=== PATIENT | male | born 1955 | race Caucasian/White ===

== ENCOUNTER 2021-04-30 10:11 | Outpatient (CLI) | payer MEDICARE, SELFPAY ==
--- NOTE | 2021-04-30 10:32 | XR_ITS ---
WS: [id number] XR chest 2V* [id number] REASON FOR EXAM: PULMONARY EMPHYSEMA/SHORTNESS OF BREATH ON EXERTION FINDINGS: The chest is unchanged compared to 10/10/2018. Mild tortuosity of the gastric aorta. Normal heart size. Calcified granulomatous disease in both hemithoraces. No acute pulmonary parenchymal or pleural abnormality. Mild flattening of the hemidiaphragms with mild expansion of the anterior clear space. Mild scoliosis of the thoracic spine convex right. Mild changes of degenerative spondylosis in the mi d and lower thoracic spine. XR/XR chest 2V* [id number] IMPRESSION: Mild findings of hyperexpansion. No acute abnormality.
== END 2021-04-30 10:12 | disposition home or self-care (01) ==
PROVIDERS: PCP Registered Nurse; Visit Provider Registered Nurse
DX: J43.9 Emphysema, unspecified (principal); R06.02 Shortness of breath
CPT/HCPCS: 71046

== ENCOUNTER 2023-11-18 08:09 | Outpatient (CLI) | payer MEDICARE, SELFPAY ==
--- NOTE | 2023-11-18 08:30 | USCV_ITS ---
Abimael Núñez Age: 68 Gender: M : 1955 Exam Date: 11/18/2023 08:27 Ordering Phys: Octavio Barrett MD Technologist: [place] [facility] [place]cp BP: 128 / 72 HR: 88 Rhythm: Sinus Technical Quality: Adequate MEASUREMENTS (Male / Female) Normal Values 2D ECHO LVOT Diameter 2.0 cm LV Ejection Fraction MOD 4C 40.8 % LV Ejection Fraction MOD 2C 52.7 % LV Ejection Fraction 2C AL 53.1 % LA Diameter 4.1 cm RA Systolic Volume 4C AL 20.1 ml RA Systolic Volume 4C MOD 19.7 ml LA Sys Volume AL 44.8 cm cubed LA Sys Volume Index AL 25.0 cm cubed/m squared Aorta at Sinotubular Diameter 2.3 cm IVC Diameter 1.6 cm M-MODE LA Ao Ratio MM 1.4 AV Cusp Separation MM 2.5 cm DOPPLER AV Peak Velocity 224.0 cm/s LVOT Peak Velocity 109.0 cm/s AV Area Cont Eq vti 2.2 cm squared AV Area Cont Eq pk 1.6 cm squared MV Peak Velocity 119.0 cm/s MV Area PHT 7.6 cm squared Mitral E to A Ratio 0.7 TR Peak Velocity 188.0 cm/s TR Peak Gradient 14.1 mmHg TV Peak E Velocity 72.0 cm/s Right Atrial Pressure 3.0 mmHg Pulmonary Artery Systolic Pressu 17.1 mmHg PV Peak Velocity 132.5 cm/s FINDINGS Left Ventricle Left ventricle is normal in size. LV systolic function is mildly reduced with EF of 40-45%. Septal motion is consistent with conduction abnormality. Mild global hypokinesis. Grade 1 diastolic dysfunction. Right Ventricle The right ventricle is normal in size and function. Right Atrium The right atrium is normal in size. Left Atrium The left atrium is normal in size. Mitral Valve Structurally normal mitral valve. Mild mitral regurgitation Aortic Valve Structurally normal aortic valve. Mild aortic stenosis with aortic valve area of 2.1 cm2 and mean gradient of 10 mmHg. Tricuspid Valve Mild tricuspid regurgitation. Pulmonary artery systolic pressure is normal. Pulmonic Valve Not well visualized Pericardium Normal pericardium without effusion. Aorta Normal ascending aorta dimension. IVC The inferior vena cava appears normal. CONCLUSIONS LV systolic function is mildly reduced with EF of 40-45% Grade 1 diastolic dysfunction. Mild mitral regurgitation. Mild aortic stenosis Mild tricuspid regurgtation Compared to prior echocardiogram from 2013, patient now has LV dysfunction, mild aortic stenosis, mild mitral regurgitation and mild tricuspid regurgitation. Damian Yu MD (Electronically Signed) Final Date: 21 November 2023 18:20 S
== END 2023-11-18 08:10 | disposition home or self-care (01) ==
LOC: RAD 08:10
PROVIDERS: PCP Family Medicine; Visit Provider Family Medicine
DX: R01.1 Cardiac murmur, unspecified (principal); I50.20 Unspecified systolic (congestive) heart failure; I34.0 Nonrheumatic mitral (valve) insufficiency; I35.0 Nonrheumatic aortic (valve) stenosis; I36.1 Nonrheumatic tricuspid (valve) insufficiency
CPT/HCPCS: 80053; 80061; 83721; 85025; 93306

== ENCOUNTER 2024-10-08 07:20 | Emergency (ER) | payer MEDICARE, SELFPAY ==
--- OUTSIDE RECORDS SUMMARY | 2024-01-14 04:00 | XMS_ITS ---
Author Organization [facility] Address [address] [place] [address] Care Team Providers Care Core Blower Operator Name Role Phone Cookie Preston Unavailable [phone] Migration, Provider Unavailable Unavailable REASON FOR VISIT EMR-Jerald Encounters Encounter Location Date Provider Diagnosis Migrated_Facility 0 0 01/14/2024 Provider Migration Plan Of Treatment Medication Medication Name Sig Start Date Stop Date Notes Naproxen 500 MG Tablet 1 Tablet Twice a Day Oral 5 09/07/2014 traMADol HCl 50 MG Tablet 1 Tablet Three times a Day Oral 08/08/2014 09/07/2014 Lyrica 75 MG Capsule 1 Twice a Day Oral 08/08/2014 015 Progress Notes * Abimael GATES ADOB:[birth year] (69 yo M)Acc No.[id number]:01/14/2024 Patient: Abimael JONES :1955 A ge:68 Y S ex:Male Address:[address] [place] [address] [address] , [place], [address] * Refills Stop Lyrica Capsule, 75 MG, Oral, 1 Twice a Day Stop Naproxen Tablet, 500 MG, Oral, 1 Tablet Twice a Day Stop traMADol HCl Tablet, 50 MG, Oral, 1 Tablet Three times a Day Subjective: * Chief Complaints: * E MR-Jerald * * Date:
--- OUTSIDE RECORDS SUMMARY | 2024-01-15 04:00 | XMS_ITS ---
Author Organization [facility] Address [address] [place] [address] Care Team Providers Care Recruitment Assistant Name Role Phone Cookie Preston Unavailable [phone] Migration, Provider Unavailable Unavailable Allergies Allergen (clinical drug ingredient) Drug/Non Drug Allergy documented on EMR Reaction Allergy Type Onset Date Status duloxetine Cymbalta Chest Pain, Trouble Breathing Drug Allergy Active erythromycin Erythromycin Base Sick Drug Allergy Active metronidazole Flagyl Sick Drug Allergy Act bryson gabapentin Gabapentin Psychotic Drug Allergy Activ e amitriptyline Amitriptyline Tachycardia, Fever Drug Allergy Active codeine Codeine Sick Drug Allergy Active REASON FOR VISIT EMR-Jerald Medications Medication SIG (Take, Route, Frequency, Duration) Notes Start Date End Date Status Omeprazole *Pick strength-f orm from Medispan for eRX* Active Fish Oil *Pick strength-f orm from Medispan for eRX* Active Ciprofloxacin *Pick strength-f orm from Medispan for eRX* Active Social History Social History Additional Details Category Social Info Options Details Migrated Social History Migrated Social History Alcoholic beverages? - Yes, Currently on disability? - Yes, Drug or substance abuse? - No, If yes, frequency of alcoholic beverages - 2-3 drinks per day, Marital Status - , Nonprescription drug use? - No, Smoking - 1 and 1/2 PPD, Smoking status (MU) - Current every day smoker, Working currently? - No Encounters Encounter Location Date Provider Diagnosis Migrated_Facility 0 0 01/15/2024 Provider Migration Plan Of Treatment No Information Progress Notes * Abimael GATES ADOB:[birth year] (69 yo M)Acc No.[id number]:01/15/2024 Patient: Melissa KIDD Abimael Bryan :1955 A ge:68 Y S ex:Male Address:[address] [place] [address], [address] Subjective: * Chief Complaints: * E MR-Jerald * Medical History: Arthritis, A sthma, C ancer, D iabetes, H eart attack, K idney infection, K idney stone, T hyroid disease, * Surgical History: Wrist surgery * Family History: M igrated Family History: : Cancer, c hronic pain, D iabetes, H eart disease. * Social History: M igrated Social History: M igrated Social History: Alcoholic beverages? - Yes, C urrently on disability? - Yes, D rug or substance abuse? - No, I f yes, frequency of alcoholic beverages - 2-3 drinks per day, Marital Status - , N onprescription drug use? - No, S moking - 1 and 1/2 PPD, S moking status (MU) - Current every day smoker, W orking currently? - No. * Medications: T akingCiprofloxacin , Notes to Pharmacist: *Pick strength-form from Medispan for eRX*Omeprazole , Notes to Pharmacist: *Pick strength-form from Medispan for eRX*Fish Oil , Notes to Pharmacist: *Pick strength-form from Medispan for eRX*Taking Ciprofloxacin , Notes to Pharmacist: *Pick strength-form from Medispan for eRX*Taking Omeprazole , Notes to Pharmacist: *Pick strength-form from Medispan for eRX*Taking Fish Oil , Notes to Pharmacist: *Pick strength-form from Medispan for eRX* * Allergies: A mitriptyline: Tachycardia, Fever - AllergyCymbalta: Chest Pain, Trouble Breathing - AllergyFlagyl: Sick - AllergyErythromycin Base: Sick - AllergyCodeine: Sick - AllergyGabapentin: Psychotic - Allergy * * Date:
--- OUTSIDE RECORDS SUMMARY | 2024-10-08 07:27 | XMS_ITS | Clinical Summary ---
Author Organization [facility] Address [address] [place] [address] [address] [place] [address] Care Team Providers Care Manager Distribution Center Name Role Phone Jeff Holliday Primary Care Provider [phone] Allergies Active Allergy Reactions Criticality Noted Date Comments Codeine Nausea and Vomiting Low 07/12/2008 Erythromycin Abdominal Pain Low 12/23/2016 Metronidazole Nausea and Vomiting Low 07/12/2008 Medications OMEPRAZOLE 20 mg Oral TbEC Take by mouth daily. Active HYDROCODONE BIT/ACETAMINOPH EN (HYDROCODONE-AC ETAMINOPHEN) 7.5-500 mg Oral Tab Take 1 Tab by mouth every 6 hours as needed for Pain. Please mail 120 Tab 1 9 Active cyclobenzaprine (FLEXERIL) 10 mg Oral Tab Take 1 Tab by mouth 3 times daily as needed for Spasm. Please mail 90 Tab 5 9 Active albuterol HFA 90 mcg inhaler Take 2 Puffs by inhalation every 6 hours as needed for Shortness of Breath. Active calcium as carbonate (TUMS) 500 mg (200 mg elemental) Tablet, Chewable Take by mouth. Activ e OTHER Provider please include Medication name, dose, route and frequency . Active HYDROcodone-gwen taminophen (NORCO) 5-325 mg tablet Take 1-2 Tablets by mouth every 4 hours as needed for Pain. Max Daily Amount: 12 Tablets 30 Tablet 7 Active Active Problems Problem Noted Date Diagnosed Date HTN (hypertension), benign 07/12/2008 Osteoarthritis 07/12/2008 Tobacco abuse 07/12/2008 Overview (07/12/2008): 2 ppd Narcotic dependence 07/12/2008 Generalized anxiety disorder 07/12/2008 Resolved Problems Problem Noted Date Diagnosed Date Resolved Date Open wound of chin 12/24/2016 7 Open wound of forehead 12/24/201602/14 Family History Medical History Relation Name Comments Heart Disease Father Diabetes Mother Heart Disease Sister Relation Name Status Comments Brother Father Mother Alive Sister Alive Social History Tobacco Use Types Packs/Day Years Used Date Smoking Tobacco: Every Day Cigarettes 1 40 Smokeless Tobacco: Never Tobacco Cessation:Ready to Q uit: No; Counseling Given: Yes Alcohol Use Standard Drinks/Week Comments Yes 2 (1 standard drink = 0.6 oz pur e alcohol) Sex and Gender Information Value Date Recorded Sex Assigned at Not on file Legal Sex Male 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 Gender Identity Not on file Sexual Orientation Not on file Last Filed Vital Signs Vital Sign Reading Time Taken Comments Blood Pressure 123/82 05/16/2017 10:38 AM 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 Pulse 119 05/16/2017 10:38 AM 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 Temperature 37.2 C (99 F) 12/24/2016 6:55 AM CDT Respiratory Rate 16 12/24/2016 11:00 AM CDT Oxygen Saturation 100% 12/24/2016 11:00 AM CDT Inhaled Oxygen Concentration - - Weight 65.8 kg (145 lb) 05/16/2017 10:38 AM 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 Height 167.6 cm (5' 6 ) 05/16/2017 10:38 AM 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 Body Mass Index 23.4 05/16/2017 10:38 AM 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 Plan of Treatment Health Maintenance Due Date Last Done Comments DTAP/TDAP/TD VACCINES (1 - Tdap) 07/18/1975 PNEUMOCOCCAL VACCINE 50+ YEARS (1 of 2 - PCV) 07/17/18 76 COLORECTAL SCREENING 2001 Colorectal Cancer Screening 2001 FIT-DNA Q 3 years 2001 FIT/FOBT Q 1 year 2001 Flex Sig/CT Colonography Q 5 years 2001 ZOSTER VACCINE (1 of 2) 2006 INFLUENZA VACCINE (#1) 2024 RSV VACCINE (60+ or ) (1 - 1-dose 75+ series) 07/18/2031 Insurance MEDICARE PART A AND B Advance Directives For more information, please contact: [phone] * Full Code (Latest Code Status on File) Date Activated Date Inactivated Comments 12/24/2016 9:00 AM 12/24/2016 1:55 PM * Full Code Date Activated Date Inactivated Comments 12/24/2016 7:26 AM 12/24/2016 9:00 AM Care Teams Manager Distribution Center Relationship Specialty Start Date End Date Jeff Holliday PA [address] [place] [address] PCP - General Physician Shoe Cutter 12/21/16
--- OUTSIDE RECORDS SUMMARY | 2024-10-08 07:27 | XMS_ITS | Patient Health Record ---
Author Organization [facility] Address [address] [place], [place] [address] Care Team Providers Care Mycology Teacher Name Role Phone Brittni Whitaker APRN Primary Care Provider Sandie Cuevas MD, [place] Unavailable [phone] Allergies Allergen (clinical drug ingredient) Drug/Non Drug Allergy documented on EMR Reaction Allergy Type Onset Date Status metronidazole Flagyl Unknown Drug Allergy Act bryson codeine codeine Unknown Drug Allergy Active erythromycin Unknown Drug Allergy Acti ve duloxetine Cymbalta raises blood pressure Drug Allergy Active pregabalin Lyrica raises blood pressure Drug Allergy Active Reason For Referral No Information Medications Medication SIG (Take, Route, Frequency, Duration) Notes Start Date End Date Status Multivitamin 1 tab once a day Active omeprazole 20 mg 1 cap orally once a day Active cyclobenzaprine 10 mg 1 tab orally as needed Active niacin 500 mg 1 tab orally as directed Active Super B Complex 1 tab orally once a day Active calcium carbonate-magnesium carbonate 3 caps orally QD Active Promethazine DM 15 mg-6.25 mg/5 mL 1-2 tsps orally QHS, PRN cough Active Cipro 500 mg 1 tab orally every 1 2 hours (propholaxis) Active Fish Oil 1000 mg 1 cap orally as directed Active albuterol-ipratropium CFC free 100 mcg-20 mcg/inh 1 puff inhaled as directed, PRN Active Vitamin C 500 mg 1 tab orally once a day Active Milk thistle 1 tab once a day Active traMADol 50 mg 1 tab orally every 4 hours Active aspirin 81 mg 1 tab orally once a day Active Sudafed 12-Hour 120 mg 1 tab orally ever y 12 hours Active Vitamin D3 5000 intl units 1 tab orally once a day Active doxycycline hyclate 100 mg 1 cap orally 2 times a day Active L-Tyrosine 500 mg, 100 1 cap as directed Active methotrexate 2.5 1 tab orally once a week Active Vitamin B12 500 mcg 1 tab orally once a day Active Social History Tobacco Use: Social History Observation Description Date Details (start date - stop date) Current Smoker NA - NA Tobacco use: Question Answer Notes : current every day smoker Problems Problem Type SNOMED Code ICD Code Onset Dates Problem Status W/U Status Risk Notes Problem Lumbosacral spondylosis without myelopathy (34135220) Lumbosacral spondylosis without myelopathy (721.3) Active confirmed Problem Spasm (38538365) Muscle spasm (728.85) Active confirmed Problem Hypersomnia (79587868) Hypersomnia (780.54) Active confirmed Problem Sleep dysfunction with sleep stage disturbance (528966229) Dysfunctions associated with sleep stages or arousal from sleep (780.56) Active confirmed Problem Low back pain (949501176) Low back pain (724.2) Active confirmed Problem Displacement of lumbar intervertebral disc without myelopathy (11148533) Lumbar (w/out myelopathy) intervertebral disc disorder (722.10) Active confirmed Problem Long-term drug therapy (834629003) LONG-TERM USE MEDS NEC (V58.69) Active confirmed r/o substance abuse Problem Anxiety state (161633345) Anxiety State, other, specified: procedure related (300.09) Active confirmed Problem Solitary sacroiliitis (114177471) Sacroiliitis (720.2) Active confirmed Plan Of Treatment No Information Insurance Providers Payer Name Payer Address Payer Phone Subscriber Number Group Number Insured Name Patient Relationship to Insured Coverage Start Date Coverage End Date [employer] Medicare Part B Claims Department [address] [address] [place] [address] [id number] Abimael Núñez Self - patient is the insured Medical (General) History Medical History History ICD Code Back pain Degenerative disc disease Arthritis Skin cancer Urolithiasis Scoliosis, mild Hypertension Tachycardia Herniated disc Surgical History Surgery Date(Month/Year) Left wrist 1999 Skin cancer removal 2009 Hospitalization History Reason Date(Month/Year)
[2024-10-08 07:28] VITALS: BP 157/86; PULSE 109; RESP 20; TEMP 36.7; O2SAT 99
--- OUTSIDE RECORDS SUMMARY | 2024-10-08 07:28 | XMS_ITS | Patient Health Record ---
Author Organization [facility] Address [address] [place] [address] Care Team Providers Care Toll Ticket Clerk Name Role Phone Cookie Preston Unavailable [phone] Migration, Provider Unavailable Unavailable Reason For Referral No Information Medications Medication [...] every day smoker, Working currently? - No Problems Problem Type SNOMED Code ICD Code Onset Dates Problem Status W/U Status Risk Notes Problem Fatigue (57752979) Fatigue (780.79) 03/09 Active confirmed [id number] Problem Fibromyalgia (243422659) Fibromyalgia (729.1) 2017 Problem resolved confirmed [id number]- Problem Hypercholesterolemia (02777667) Hypercholesterolemia (272.0) 2018 Problem resolved confirmed [id number]- Problem Disorder of hematopoietic system (11554253) Other abnormal findings on blood examination (790.99) 2018 Problem resolved confirmed [id number]- Problem Tobacco abuse (3767602065) Tobacco abuse (305.1) 2017 Problem resolved confirmed [id number]- Problem Long-term drug therapy (830543187) Patient visit for correction (current) drug use; other (V58.69) 2018 Problem resolved confirmed [id number]- Problem Sinus tachycardia (76856876) Sinus tachycardia (427.89) 2018 Problem resolved confirmed [id number]- Problem Chronic sinusitis (82164903) Chronic sinusitis, other (473.8) 2018 Problem resolved confirmed [id number]- Problem Essential hypertension (22225978) Essential hypertension (401.1) 2017 Problem resolved confirmed [id number]- Problem Diabetes mellitus type 2 (disorder) (64345440) Type 2 diabetes (250.00) 2018 Problem resolved confirmed [id number]- Encounters Encounter Location Date Provider Diagnosis Migrated_Facility 0 0 01/14/2024 Provider Migration Migrated_Facility 0 0 01/15/2024 Provider Migration Plan Of Treatment No Information Medical (General) History Surgical History Surgery Date(Month/Year) Wrist surgery
--- OUTSIDE RECORDS SUMMARY | 2024-10-08 07:28 | XMS_ITS | Clinical Summary ---
Author Organization [facility] Address [address] Xavier: Epic Prelude ADT [place]IP [place] [address] Care Team Providers Care Manager Respiratory Name Role Phone Risa Zuñiga Miquel PEOPLES Primary Care Provider Allergies Active Allergy Reactions Criticality Noted Date Comments Amitriptyline Nausea and Vomiting Low 03/09/2021 Baclofen Nausea and Vomiting Low 03/09/2021 Codeine Nausea and Vomiting Low 07/12/2008 Duloxetine Nausea and Vomiting Low 03/09/2021 Erythromycin Abdominal Pain Low 12/23/2016 Fenofibrate Micronized Abdominal Pain Low 3 Glucosamine Nausea and Vomiting Low 03/09/2021 Meloxicam Nausea and Vomiting Low 03/09/2021 Metronidazole Nausea and Vomiting Low 07/12/2008 Pregabalin Nausea and Vomiting Low 03/09/2021 Cynxtwn-Sjt-Kte Reductase Inhibitors Other (See Comments) 09/29/2021 Pt reports he cannot tolerate statins Sulfa (Sulfonamide Antibiotics) Nausea and Vomiting Low 03/09/2021 Medications umeclidinium-vilan teroL (Anoro Ellipta) 62.5-25 mcg/actuation Disk with DeviceIndications: Pulmonary emphysema, unspecified emphysema type (CMS/HCC) Take 1 Puff by inhalation daily. 180 Each 2 02/16/20 23 Active chlorzoxazone (PARAFON FORTE) 500 mg tabletIndications: Chronic joint pain,Primary osteoarthritis involving multiple joints,Muscle spasm Take 1 Tablet (500 mg) by mouth 2 times daily. 180 Tablet 3 06/14/19 24 Active cyclobenzaprine (FLEXERIL) 10 mg tablet Take 1 Tablet (10 mg) by mouth 3 times daily as needed for Spasm. 90 Tablet 11 06/14/19 24 Active ezetimibe (ZETIA) 10 mg tabletIndications: Mixed hyperlipidemia Take 1 Tablet (10 mg) by mouth daily. 100 Tablet 3 06/14/19 24 Active levothyroxine 50 mcg tabletIndications: Acquired hypothyroidism Take 1 Tablet (50 mcg) by mouth daily. 90 Tablet 3 06/20/19 24 Active albuterol sulfate HFA 90 mcg/actuation aerosol inhalerIndications :Pulmonary emphysema, unspecified emphysema type (CMS/HCC) INHALE 2 PUFFS BY MOUTH EVERY 6 HOURS NEEDED FOR SHORTNESS OF BREATH OR WHEEZING 18 Gram 3 02/24/20 24 Active benazepriL (LOTENSIN) 40 mg tabletIndications: HTN (hypertension), benign Take 0.5 Tablets (20 mg) by mouth daily. *NEEDS APPOINTMENT FOR MORE REFILLS* 45 Tablet 06/15/19 25 Active Active Problems Problem Noted Date Diagnosed Date Panlobular emphysema 07/09/2023 Acquired hypothyroidism 06/20/2023 Mixed hyperlipidemia 06/14/2023 Other osteoporosis without current pathological fracture 01/13/2023 Chronic joint pain 07/12/2022 HTN (hypertension), benign 07/12/2008 Osteoarthritis 07/12/2008 Generalized anxiety disorder 07/12/2008 Resolved Problems Problem Noted Date Diagnosed Date Resolved Date Cigarette dependence 07/09/2023 024 Open wound of chin 12/24/2016 7 Open wound of forehead 12/24/201602/14 Narcotic dependence 07/12/2008 07/13/19 23 Tobacco abuse 07/12/2008 06/14/2023 Overview (2020): 2 ppd Encounters Date Type Department Care Team Description 09/04/2024 External Device Data [facility] ABSTRACTION Provider, Abstract 08/08/2024 External Device Data [facility] ABSTRACTION Provider, Abstract 08/07/2024 External Device Data [facility] ABSTRACTION Provider, Abstract 07/10/2024 External Device Data [facility] ABSTRACTION Provider, Abstract from Last 3 Months Family History Medical History Relation Name Comments Heart Disease Father Diabetes Mother Heart Disease Sister Relation Name Status Comments Brother Father Mother Alive Sister Alive Social History Tobacco Use Types Packs/Day Years Used Date Smoking Tobacco: Every Day Cigarettes Passive Smoke Exposure: Current Smokeless Tobacco: Never Tobacco Cessation:Ready to Q uit: Yes; Counseling Given: Not Answered Alcohol Use Standard Drinks/Week Comments Yes 14 (1 standard drink = 0.6 oz pu re alcohol) Sex and Gender Information Value Date Recorded Sex Assigned at Male 05/25/2023 10:30 AM RADIOLOGY SPECIAL PROCEDURE TECH Legal Sex Male 12:23 PM RADIOLOGY SPECIAL PROCEDURE TECH Gender Identity Male 05/25/2023 10:30 AM RADIOLOGY SPECIAL PROCEDURE TECH Sexual Orientation Straight 05/25/2023 10 :30 AM RADIOLOGY SPECIAL PROCEDURE TECH Last Filed Vital Signs Vital Sign Reading Time Taken Comments Blood Pressure 128/72 06/29/2023 1:04 PM CDT Pulse 105 06/29/2023 1:04 PM CDT Temperature 37.3 C (99.2 F) 06/29/2023 1:04 PM CDT Respiratory Rate 20 06/14/2023 9:47 AM CDT Oxygen Saturation 98% 06/29/2023 1:04 PM CDT Inhaled Oxygen Concentration - - Weight 68.4 kg (150 lb 12.8 oz) 06/29/2023 1:04 PM CDT Height 167.6 cm (5' 6 ) 06/29/2023 1:04 PM CDT Body Mass Index 24.34 06/29/2023 1:04 PM CDT Plan of Treatment Health Maintenance Due Date Last Done Comments FLEX SIG/CT COLONOGRAPHY Q 5 YEARS (AUTO ORDER) 1974 PNEUMOCOCCAL VACCINE 50+ YEA RS (1 of 2 - PCV) 07/18/1975 DTAP/TDAP/TD VACCINES (1 - Tdap) 03/22/2001 03/21/19 02 COLORECTAL CANCER SCREENING (AUTO ORDER) 2001 COLORECTAL SCREENING 2001 Flex Sig/CT Colonography Q 5 years 2001 ZOSTER VACCINE (1 of 2) 2006 RSV VACCINE (60+ or ) (1 - Risk 60-74 years 1-dose series) 2016 FIT/FOBT Q 1 YEAR (AUTO ORDER) 08/19/2021 08/19/2020 FIT/FOBT Q 1 year 08/19/2021 08/19/2020 Medicare Advantage ([place]) Prev entative Visit/Annual Wellness Visit 03/21/2024 INFLUENZA VACCINE (#1) 2024 04/28/2021 Colorectal Cancer Screening (AUTO ORDER) 09/07/2026 Colorectal Cancer Screening 09/07/2026 FIT-DNA Q 3 years 09/07/2026 09/08/2023, 03/21/2019 FIT/ DNA Q 3 YEARS (AUTO ORDER) 09/07/2026 4 Procedures Procedure Name Priority Date/Time Associated Diagnosis Comments COLON CANCER SCREEN, STOOL DNA Routine 09/08/2023 12:30 PM CDT Encounter for colorectal cancer screening OCCULT BLOOD IMMUNOASSAY, COLORECTAL SCREEN Routine 08/19/2020 from Last 3 Months or Most Recently Relevant to Health Maintenance Results * COLON CANCER SCREEN, STOOL DNA (09/08/2023 12:30 PM CDT) COLOGUARD RESULT Negative Negative [facility] Comment: NEGATIVE TEST RESULT. A negative Cologuard result indicates a low likelihood that a colorectal cancer (CRC) or advanced adenoma (adenomatous polyps with more advanced pre-malignant features) is present. The chance that a person with a negative Cologuard test has a colorectal cancer is less than 1 in 1500 (negative predictive value >99.9%) or has an advanced adenoma is less than 5.3% (negative predictive value 94.7%). These data are based on a prospective cross-sectional study of 10,000 individuals at average risk for colorectal cancer who were screened with both Cologuard and colonoscopy. (Alexsander Snyder et al, N Engl J Med 2014;370(14):3289-6691) The normal value (reference range) for this assay is negative. COLOGUARD RE-SCREENING RECOMMENDATION: Periodic colorectal cancer screening is an important part of preventive healthcare for asymptomatic individuals at average risk for colorectal cancer. Following a negative Cologuard result, the [place] [employer] and U.S. Multi-Society Task Force screening guidelines recommend a Cologuard re-screening interval of 3 years. References: [place] [employer] Guideline for Colorectal Cancer Screening: https://www.cancer.org/cancer/lxjdj-dylcvr-gcwdrq/tuyrcyrki-munkdgkxo-stirafp/ac s-rec ommendations.html.; Carmelo KHALIL, Gala MARTIN, Geovanna YinK, Colorectal Cancer Screening: Recommendations for Physicians and Patients from the U.S. Multi-Society Task Force on Colorectal Cancer Screening , Am J Gastroenterology 2017; 112:4230-1312. TEST DESCRIPTION: Composite algorithmic analysis of stool DNA-biomarkers with hemoglobin immunoassay. Quantitative values of individual biomarkers are not reportable and are not associated with individual biomarker result reference ranges. Cologuard is intended for colorectal cancer screening of adults of either sex, 45 years or older, who are at average-risk for colorectal cancer (CRC). Cologuard has been approved for use by the U.S. FDA. The performance of Cologuard was established in a cross sectional study of average-risk adults aged 50-84. Cologuard performance in patients ages 45 to 49 years was estimated by sub-group analysis of near-age groups. Colonoscopies performed for a positive result may find as the most clinically significant lesion: colorectal cancer [4.0%], advanced adenoma (including sessile serrated polyps greater than or equal to 1cm diameter) [20%] or non- advanced adenoma [31%]; or no colorectal neoplasia [45%]. These estimates are derived from a prospective cross-sectional screening study of 10,000 individuals at average risk for colorectal cancer who were screened with both Cologuard and colonoscopy. (Alexsander Valencia al, N Engl J Med 2014;370(14):6586-1826.) Cologuard may produce a false negative or false positive result (no colorectal cancer or precancerous polyp present at colonoscopy follow up). A negative Cologuard test result does not guarantee the absence of CRC or advanced adenoma (pre-cancer). The current Cologuard screening interval is every 3 years. ([place] [employer] and U.S. Multi-Society Task Force). Cologuard performance data in a 10,000 patient pivotal study using colonoscopy as the reference method can be accessed at the following location: www.[employer]/results. Additional description of the Cologuard test process, warnings and precautions can be found at www.[employer]Panel[employer].com. Stool STOOL SPECIMEN / Unknown 09/08/2023 12:30 PM CDT 09/10/2023 7:54 PM CDT us Risa Zuñiga DO [facility] Steffi granados Result [facility] # [id number] [address], [address] [place] [address] * OCCULT BLOOD IMMUNOASSAY, COLORECTAL SCREEN (08/19/2020) Stool STOOL SPECIMEN / Unknown us Abstract Provider [facility] Final R esult from Last 3 Months or Most Recently Relevant to Health Maintenance Insurance [facility] [id number] Care Teams Manager Respiratory Relationship Specialty Start Date End Date Risa Zuñiga DO [address] [place] [address] PCP - General Family Practice 04/28/21
--- NOTE | 2024-10-08 07:30 | XRR_ITS ---
PROCEDURE INFORMATION: Exam: XR Chest Exam date and time: 10/08/2024 7:35 AM Age: 69 years old Clinical indication: Cough and dyspnea; Additional info: Dyspnea/cough TECHNIQUE: Imaging protocol: Radiologic exam of the chest. Views: 1 view. COMPARISON: 1. CR XR chest 2V* [id number] 04/30/2021 10:36 AM 2. CR XR chest 2V* [id number] 09/20/2018 9:32 AM FINDINGS: Lungs: Patient is mildly rotated. Mild haziness at the left lung base. Lungs are otherwise clear. Pleural spaces: No pleural effusion. No pneumothorax. Heart/Mediastinum: Cardiomediastinal silhouette is normal. Bones/joints: No acute abnormality. XR/XR chest 1V portable [id number] IMPRESSION: Mild haziness at the left lung base, possible infectious/inflammatory process and/or atelectasis.
[2024-10-08 07:32] VITALS: BP 172/98; PULSE 115; RESP 16; O2SAT 98
--- NOTE | 2024-10-08 07:47 | ECG_ITS ---
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 Measurements Intervals [address] Rate: 112 P: 71 IA: 130 QRS: 55 QRSD: 154 T: 198 QT: 351 QTc: 480 Interpretive Statements SINUS TACHYCARDIA POSSIBLE LEFT ATRIAL ENLARGEMENT [-0.1mV P-WAVE IN V1/V2] LEFT BUNDLE BRANCH BLOCK [120+ ms QRS DURATION, 80+ ms Q/S IN V1/V2, 85+ ms R IN I/aVL/V5/V6] No previous ECG available for comparison Electronically Signed On 10-08-2024 17:00:02 CDT by Khang Rain M.D. [id number]
[2024-10-08 07:55] LABS: Hematocrit 47.9 % (37-53); Hemoglobin 16.30 g/dL (11.27-16.99); Mean Corpuscular HGB Conc 34.0 g/dL (30-55); Mean Corpuscular Hemoglobin 32.5 pg (27-33); Mean Corpuscular Volume 95.6 fl (82-101); Nucleated Red Blood Cells % 0 %; Platelet Count 277 10^3/cmm (157-399); Red Blood Count 5.01 10^6/uL (3.85-5.65); White Blood Count 9.49 10^3/uL (3.29-11.43)
--- NOTE | 2024-10-08 07:59 | ED_ITS ---
HPI - Back Pain/Injury 2 General: Chief Complaint: Back Pain/Injury Stated Complaint: left side arm and back pain Time Seen by Provider: 10/08/24 07:24 History of Present Illness: 69-year-old male presents emergency room with left arm shoulder and back pain for the last few weeks. No known injury. He denies it being truly chest like pain. He denies of breath no nausea or vomiting movement precipitates it. He does have chronic left shoulder pain due to previous injury. Describes pain is radiating across the upper portion of the trapezius from the neck down into the arm at times all the way to his hand at times Associated symptoms: Deny abdominal pain, chills, dysuria, fever(s) or urinary urgency Related Data Home Medications ?Medication ?Instructions ?Recorded ?Confirmed acetaminophen 500 mg tablet 500 mg PO Q6H PRN Pain 10/11/24 (Tylenol Extra Strength) Previous Rx's ?Medication ?Instructions ?Recorded albuterol sulfate 90 mcg/actuation 2 puff inhalation Q 6H PRN 03/12/24 aerosol inhaler shortness of breath or wheez ing #8.5 grams ondansetron HCl 4 mg tablet 4 mg PO Q8H PRN nausea and 09/10/24 vomiting #30 tabs cyclobenzaprine 10 mg tablet 10 mg PO TID PRN muscle s pasm #20 10/08/24 tabs hydrocodone 5 mg-acetaminophen 325 1 tab PO Q6H PRN pa in #15 tabs 10/08/24 mg tablet methylprednisolone 4 mg tablets in See Rx Instructions PO .COMPLEX 10/08/24 a dose pack (Medrol (Andrew)) #21 ea hydrocodone 5 mg-acetaminophen 325 1 tab PO Q4H pain 7 days #42 tabs 10/11/24 mg tablet diazepam 5 mg tablet (Valium) 5 mg PO BID PRN anxiety #2 tabs 10/12/24 Allergies Allergy/AdvReac Type Severity Reaction Status Date / Time amitriptyline Allergy NA Verified 11/29/23 09:17 Androgenic Anabolic Steroid Allergy Unknown Verified 10/08/24 07:28 baclofen Allergy NA Verified 11/29/23 09:17 codeine Allergy NA Verified 11/29/23 09:17 duloxetine Allergy NA Verified 11/29/23 09:17 erythromycin base Allergy NA Verified 11/29/23 09:17 glucosamine Allergy NA Verified 11/29/23 09:17 meloxicam Allergy NA Verified 11/29/23 09:17 metronidazole (From Flagyl) Allergy NA Verified 11/29/23 09:17 pregabalin (From Lyrica) Allergy NA Verified 11/29/23 09:17 simvastatin Allergy myalgias Verified 11/29/23 09:17 Sulfa (Sulfonamide Allergy NA Verified 11/29/23 09:17 Antibiotics) ezetimibe AdvReac ADR-Depress Verified 11/29/23 09:17 ion Review of Systems 2 Const: Denies: fever(s) or chills Card: Denies: chest pain Resp: Denies: dyspnea GI: Denies: abdominal pain : Denies: dysuria, urinary frequency or urinary urgency Musc: Denies: neck pain or back pain Skin/Breast: Denies: rash PFSH ED 2 PFSH: Medical History Heart failure with reduced ejection fraction Hyperlipidemia Family History Father , 54-AR CAD (coronary artery disease) Mother Diabetes Hypertension Hyperlipidemia Family/Other No problems noted. Social History Smoking and tobacco/nicotine status: former use of tobacco/nicotine Alcohol intake: current Alcohol intake frequency: 0-2 Drinks per Day Substance/Drug Use: never Marital status: Physical Exam 2 Const: COMMON NORMALS: no acute distress GENERAL APPEARANCE: cooperative and comfortable ORIENTATION/CONSCIOUSNESS: Yes awake, Yes oriented to person, Yes oriented to place and Yes oriented to time HENMT: COMMON NORMALS: normocephalic, atraumatic and hearing grossly normal bilaterally HEAD & SCALP: normocephalic and atraumatic Resp: COMMON NORMALS: normal respiratory effort, No retractions, No use of accessory muscles and clear to auscultation bilaterally AUSCULTATION: clear to auscultation bilaterally Cardio: COMMON NORMALS: regular rate, regular rhythm and No murmurs present (Cardio) RATE: regular rate RHYTHM: regular rhythm GI: COMMON NORMALS: Soft to palpation and No hepatosplenomegaly present A USCULTATION: Yes normoactive bowel sounds PALPATION: Yes Soft to palpation, No Tenderness to palpation present (GI), No Guarding due to palpation present (GI) and Yes No hepatosplenomegaly present Extremity: COMMON NORMALS: normal to inspection, capillary refill normal, no clubbing, cyanosis or edema, no calf tenderness and no pedal edema OTHER: Negative impingement sign. No pain with passive range of motion or abduction. Neuro: SENSORIUM/ORIENTATION: Yes oriented to person, Yes oriented to place and Yes oriented to time Skin: COMMON NORMALS: no rashes or lesions noted GENERAL SKIN EXAM: no rashes or lesions noted Course 2 Vital Signs: Vital signs: Vital Signs Temperature 98.1 F 10/08/24 07:28 Pulse Rate 94 10/08/24 10:45 Respiratory Rate 16 10/08/24 07:32 Blood Pressure 160/103 10/08/24 10:45 Pulse Oximetry 97 10/08/24 10:45 Oxygen Delivery Me thod Room Air 10/08/24 07:32 MDM - Back Pain/Injury Medical Decision Making Suspect the patient may have a cervical nerve impingement radiation of the pain is more suggestive of cervical nerve impingement then direct shoulder injury. Discharge patient home refer to orthopedic spine surgery. Patient was concerned about coronary source of pain given his description of pain and exam I do not believe this is the case. He has negative troponins and EKG does not show any acute changes. Medical Records Echocardiogram November 2023 CONCLUSIONS LV systolic function is mildly reduced with EF of 40-45% Grade 1 diastolic dysfunction. Mild mitral regurgitation. Mild aortic stenosis Mild tricuspid regurgtation Compared to prior echocardiogram from 2013, patient now has LV dysfunction, mild aortic stenosis, mild mitral regurgitation and mild tricuspid regurgitation. Damian Yu MD (Electronically Signed) Final Date: 21 November 2023 Labs 10/08/24 07:49 10/08/24 07:49 Radiology Impressions Chest X-Ray 10/08/24 07:30 IMPRESSION: Mild haziness at the left lung base, possible infectious/inflammatory process and/or atelectasis. Shoulder X-Ray 10/08/24 08:07 IMPRESSION: No acute findings. Laboratory Results WBC 9.49 10^3/uL (3.29-11.43) 10/08/24 07:49 RBC 5.01 10^6/uL (3.85-5.65) 10/08/24 07:49 Hgb 16.30 g/dL (11.27-16.99) 10/08/24 07:49 Hct 47.9 % (37-53) 10/08/24 07:49 MCV 95.6 fl (82-101) 10/08/24 07:49 MCH 32.5 pg (27-33) 10/08/24 07:49 MCHC 34.0 g/dL (30-55) 10/08/24 07:49 RDW 13.2 % (12.1-15.1) 10/08/24 07:49 Plt Count 277 10^3/cmm (157-399) 10/08/24 07:49 MPV 10.1 fL (7.4-10.4) 10/08/24 07:49 Neut % (Auto) 50.0 % 10/08/24 07:49 Lymph % (Auto) 37.7 % 10/08/24 07:49 Lipscomb % (Auto) 8.7 % 10/08/24 07:49 Eos % (Auto) 2.1 % 10/08/24 07:49 Baso % (Auto) 0.8 % 10/08/24 07:49 Neut # (Auto) 4.73 10^3/uL (1.8-7.7) 10/08/24 07:49 Lymph # (Auto) 3.6 10^3/uL (0.8-4.8) 10/08/24 07:49 Lipscomb # (Auto) 0.8 10^3/uL (0.2-0.9) 10/08/24 07:49 Eos # (Auto) 0.2 10^3/uL (0.0-0.8) 10/08/24 07:49 Baso # (Auto) 0.1 10^3/uL (0.0-0.1) 10/08/24 07:49 Nucleated RBC % (auto) 0 % 10/08/24 07:49 Nucleated RBCs # 0.0 /100WBC 10/08/24 07:49 Sodium 134 mmol/L (136-145) L 10/08/24 07:49 Potassium 4.2 mmol/L (3.5-5.1) 10/08/24 07:49 Chloride 95 mmol/L (98-107) L 10/08/24 07:49 Carbon Dioxide 24 mmol/L (22-29) 10/08/24 07:49 Anion Gap 19.2 (5-19) H 10/08/24 07:49 BUN 11 mg/dL (8-23) 10/08/24 07:49 Creatinine 0.9 mg/dL (0.7-1.2) 10/08/24 07:49 GFR Calculation 83.9 mL/min (90-130) L 10/08/24 07:49 Glucose 119 mg/dL (65-115) H 10/08/24 07:49 Calculated Osmolality 279 mOsm/kg (285-295) L 10/08/24 07:49 Calcium 9.5 mg/dL (8.5-10.5) 10/08/24 07:49 Total Bilirubin 0.7 mg/dL (0.15-1.2) 10/08/24 07:49 AST 19 U/L (0-40) 10/08/24 07:49 ALT 30 U/L (0-41) 10/08/24 07:49 Alkaline Phosphatase 112 U/L (40-130) 10/08/24 07:49 Troponin T Baseline 14 ng/L (0-15) 10/08/24 07:49 Troponin T 120 Minute 13.73 ng/L (0-15) 10/08/24 09:32 Delta Troponin T -0.27 ABS# (0-10) L 10/08/24 09:32 Total Protein 7.2 g/dL (6.6-8.7) 10/08/24 07:49 Albumin 4.5 g/dL (3.5-5.2) 10/08/24 07:49 Globulin 2.7 g/dL (1.3-4.6) 10/08/24 07:49 All radiology interpretation(s) finalized by discharge EKG Data EKG 1: Interpretation: EKG October 08, 2024 7:47 AM sinus tachycardia with left bundle branch block. No acute ST elevations. QTc 417 IN interval 138 no previous EKGs to compare to. Discharge Plan Discharge Patient Disposition: Home Clinical Impression: Cervical radiculopathy Condition: Stable Prescriptions: New hydrocodone-acetaminophen 5-325 mg tablet 1 tab PO Q6H PRN (Reason: pain) Qty: 15 0RF methylprednisolone [Medrol (Andrew)] 4 mg tablets,dose pack See Rx Instructions .ROUTE .COMPLEX Qty: 21 0RF Rx Instructions: orally per package directions cyclobenzaprine 10 mg tablet 10 mg PO TID PRN (Reason: muscle spasm) Qty: 20 0RF No Action hydrocodone-acetaminophen 5-325 mg tablet 1 tab PO Q4H 7 Days Qty: 42 0RF Rx Instructions: 1 to 2 tabs every 4 hours. albuterol sulfate 90 mcg/actuation HFA aerosol inhaler 2 puff inhalation Q6H PRN (Reason: shortness of breath or wheezing) Qty: 8.5 1RF ondansetron HCl 4 mg tablet 4 mg PO Q8H PRN (Reason: nausea and vomiting) Qty: 30 11RF diazepam [Valium] 5 mg tablet 5 mg PO BID PRN (Reason: anxiety) Qty: 2 0RF Rx Instructions: 1 tab an hour before procedure, 1 tab before procedure acetaminophen [Tylenol Extra Strength] 500 mg Tablet 500 mg PO Q6H PRN (Reason: Pain) Discharge Orders: Discharge ED (Routine); Ordered 10/08/24 Ordered By: Mauro Banegas Referrals: Octavio Barrett MD [Primary Care Provider, Family Practice] Discharge Diet: Usual diet Discharge Activity: Limit activity as instructed Patient Instructions: Opioid Safety, Pain Management, Patient Portal & Juan Instructions Activity Restrictions/Additional Instructions: Thank you for choosing [facility] for your healthcare needs today. It is very important that you follow up as instructed or that you return to the Emergency Department should you have concerns or if your condition changes or worsens in any way. You were seen in the emergency room with pain in your shoulder radiating into your arm. Character of your pain is suggestive of a nerve impingement in your neck. Will discharge home on steroids with pain medications and muscle relaxers to use as needed. Will make arrangements for you to follow-up with the orthopedic clinic with the spine physician. Print Language: Danish Coding Level of Care Code ED Dixonac Operator for Julia Sarah
--- NOTE | 2024-10-08 08:07 | XRR_ITS ---
PROCEDURE INFORMATION: Exam: XR Left Shoulder Exam date and time: 10/08/2024 8:18 AM Age: 69 years old Clinical indication: Pain; Shoulder; Left TECHNIQUE: Imaging protocol: Radiologic exam of the left shoulder. Views: 2 or more views. COMPARISON: CR XR chest 1V portable [id number] 10/08/2024 7:35 AM FINDINGS: Bones/joints: No acute fracture or dislocation. Mild degenerative change. Soft tissues: Unremarkable. XR/XR shoulder LT min 2V* [id number] IMPRESSION: No acute findings.
[2024-10-08 08:11] LABS: Troponin(5th) Baseline 14 ng/L (0-15)
[2024-10-08 08:17] LABS: Alanine Aminotransferase 30 U/L (0-41); Albumin Level 4.5 g/dL (3.5-5.2); Alkaline Phosphatase 112 U/L (40-130); Anion Gap 19.2 (5-19); Aspartate Amino Transferase 19 U/L (0-40); Blood Urea Nitrogen 11 mg/dL (8-23); Calcium 9.5 mg/dL (8.5-10.5); Carbon Dioxide 24 mmol/L (22-29); Chloride 95 mmol/L (98-107); Creatinine Clr Calc Pharmacy 70.7569; Globulin 2.7 g/dL (1.3-4.6); Glucose 119 mg/dL (65-115); Osmolality Calculated 279 mOsm/kg (285-295); Potassium 4.2 mmol/L (3.5-5.1); Sodium 134 mmol/L (136-145); Total Protein 7.2 g/dL (6.6-8.7)
--- NOTE | 2024-10-08 09:04 | PC.PHAR ---
Pt has been taken off of most of his medications. Removed from chart are the following: Alprazolam 0.25mg daily prn last fill 02/23/24 30ds Anoro Ellipta 62.5-25mcg 1 inhalation daily last fill 11/25/23 30ds chlorzoxazone 500mg daily prn last fill 04/07/24 90ds Flexeril 10mg daily last fill 04/04/24 30ds levothyroxine 50mcg daily last fill 01/08/24 90ds Propranolol 10mg bid last fill 04/06/24 90ds Trazodone 100mg hs last fill 06/21/24 30ds Trelegy Ellipta 100-62.5-25mcg daily last fill 11/29/23 30ds
--- NOTE | 2024-10-08 09:30 | ECG_ITS ---
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 Measurements Intervals [place] Rate: 101 P: 59 [place]: 134 QRS: 62 QRSD: 149 T: 218 QT: 355 QTc: 461 Interpretive Statements SINUS TACHYCARDIA WITH OCCASIONAL VENTRICULAR PREMATURE COMPLEXES POSSIBLE LEFT ATRIAL ENLARGEMENT [-0.1mV P-WAVE IN V1/V2] LEFT BUNDLE BRANCH BLOCK [120+ ms QRS DURATION, 80+ ms Q/S IN V1/V2, 85+ ms R IN I/aVL/V5/V6] Positive secondary ST-T changes Compared to ECG 10/08/2024 07:47:55 Ventricular premature complex(es) now present Electronically Signed On 10-08-2024 17:11:24 CDT by Khang Rain M.D. [email or web address]
[2024-10-08 09:55] LABS: Troponin 5 2HR 13.73 ng/L (0-15)
[2024-10-08] MEDS: morphine 4 mg/mL SDV 1 mL IVP (10:00)
[2024-10-08 10:01] LABS: Troponin 5 2HR Delta -0.27 ABS# (0-10)
[2024-10-08 10:45] VITALS: BP 160/103; PULSE 94; O2SAT 97
--- NOTE | 2024-10-10 10:06 | PC.NURSE ---
ortho referral made.
== END 2024-10-08 10:46 | disposition home or self-care (01) ==
PROVIDERS: Emergency Provider Family Medicine; PCP Family Medicine
DX: M54.12 Radiculopathy, cervical region (principal); Z87.891 Personal history of nicotine dependence; E78.5 Hyperlipidemia, unspecified; I50.20 Unspecified systolic (congestive) heart failure; R05.9 Cough, unspecified; R06.00 Dyspnea, unspecified; R00.0 Tachycardia, unspecified; I44.7 Left bundle-branch block, unspecified
CPT/HCPCS: 36415; 71045; 73030; 80053; 84484; 85025; 93005; 96374; 96375; 99285; J1885; J2270

== ENCOUNTER → 2024-10-11 14:08 | Outpatient (BNVA) | payer MEDICARE, SELFPAY | PROVIDERS: PCP Family Medicine; Visit Provider Orthopaedic Surgery | DX: M54.12 Radiculopathy, cervical region (principal); M54.2 Cervicalgia | CPT/HCPCS: 72050; 99203 ==

== ENCOUNTER 2024-10-15 11:35 | Outpatient (CLI) | payer MEDICARE, SELFPAY ==
--- NOTE | 2024-10-15 16:00 | MR_ITS ---
WS: [id number] MRI CERVICAL SPINE NONCONTRAST HISTORY: Neck Pain COMPARISON: None available. Technique: Multiplanar, multisequence noncontrast imaging of the cervical spine. Normal cervical alignment with no compression fracture or significant disc space narrowing. Signal within the cervical cord is normal. Visualized posterior fossa is unremarkable. Craniocervical junction, C1 and C2 relationship, odontoid process and soft tissues are normal. C2-C3: Minimal disc bulge. No stenosis. C3-C4: Mild annular disc bulging and small foraminal osteophytes. Minimal bilateral foraminal stenosis. C4-C5: Mild annular disc bulging with a central disc protrusion. Mild bilateral facet arthritis. LEFT foraminal osteophytes resulting in mild stenosis. C5-C6: Mild annular disc bulging with facet arthritis and mild osteophytic ridging. Greater osteophyte on the RIGHT. Moderate RIGHT and mild LEFT foraminal stenosis. C6-C7: Mild annular disc bulging and osteophytic ridging. Bilateral foraminal disc osteophyte complexes. Moderate stenosis on the LEFT and mild on the RIGHT. RIGHT nerve root sleeve diverticulum. C7-T1: No stenosis. T1-2: Bilateral nerve root sleeve diverticula. MR/MR cervical spin wo con* [id number] IMPRESSION: 1. No high-grade central stenosis. 2. C6-7: Moderate LEFT foraminal stenosis and mild on the RIGHT due to disc os teophyte disease. 3. C4-5: Central disc protrusion with LEFT foraminal stenosis due to osteophyt e. 4. C5-6: Moderate RIGHT and mild LEFT foraminal stenosis due to disc osteophyt e disease.
== END 2024-10-15 11:36 | disposition home or self-care (01) ==
LOC: RAD 11:36
PROVIDERS: PCP Family Medicine; Visit Provider Orthopaedic Surgery
DX: M48.02 Spinal stenosis, cervical region (principal); M25.78 Osteophyte, vertebrae; M50.221 Other cervical disc displacement at C4-C5 level
CPT/HCPCS: 72141

== ENCOUNTER → 2024-10-16 13:22 | Outpatient (BNVA) | payer MEDICARE, SELFPAY | PROVIDERS: PCP Family Medicine; Visit Provider Orthopaedic Surgery | DX: G96.191 Perineural cyst (principal); M54.12 Radiculopathy, cervical region | CPT/HCPCS: 99214 ==